=== PATIENT | male | born 1985 | race American Indian/Alaskan Native ===

== ENCOUNTER 2016-11-30 19:35 | Emergency (ER) | payer OTHER ==
[2016-11-30] MEDS ORDERED: TYLENOL ONE (20:33)
[2016-11-30] MEDS ORDERED: TYLENOL PO ONE (20:48)
[2016-12-01] MEDS ORDERED: FLEXERIL PO ONE (00:49)
[2016-12-01] MEDS ORDERED: NORCO 7.5/325 PO ONE (00:49)
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
[2016-12-01 03:19] VITALS: BP 131/89
== END 2016-12-01 03:19 | disposition home or self-care (01) ==
LOC: ED 19:35
DX: M25.511 Pain in right shoulder (principal); M54.5 Low back pain; V89.2XXA Person injured in unspecified motor-vehicle accident, traffic, initial encounter; Y93.89 Activity, other specified; Y99.8 Other external cause status; Y92.89 Other specified places as the place of occurrence of the external cause
CPT/HCPCS: 72100; 99283